=== PATIENT | female | born 1940 | race Caucasian/White ===

== ENCOUNTER → 2024-09-21 16:58 | Outpatient (REF) | payer OTHER, SELFPAY ==
[2024-09-21 18:04] LABS: NT-proBNP 283 pg/ml
== END ==
LOC: RAD 16:58
PROVIDERS: ATTENDING PHYSICIAN Physician Assistant Medical
DX: R22.41 Localized swelling, mass and lump, right lower limb (principal); Z86.718 Personal history of other venous thrombosis and embolism
CPT/HCPCS: 36415; 83880; 93971